=== PATIENT | male | born 1970 | race African-American/Black ===

== ENCOUNTER 2018-04-28 11:04 | Emergency (ER) | payer SELFPAY ==
[~2018-04-28] VITALS: Ht 172.7 cm; Wt 83.9 kg
[~2018-04-28 11:04] MED LIST: ASPI81TA50 PO; ATOR40TA PO; AZIT250T6 PO; BENZ-8 PO; CARV6.252 PO; FURO40TA4 PO; LEVO750T31 PO; LISI-130 PO; LISI1TAB3 PO
--- NOTE | 2018-04-28 11:31 | PHYS DOC ---
Past Medical History Past Medical History: High Cholesterol, Hypertension Past Surgical History: No Surgical History Alcohol Use: Heavy Drug Use: None Adult General Chief Complaint Chief Complaint: CHEST PAIN HPI HPI Patient is a 47 year old male who presents with chest pain at 10 AM that was sharp and heavy and only lasted for several minutes. Patient states the pain was more epigastric and did not radiate. Patient states that his left shoulder and left leg felt slightly numb and he had became diaphoretic. Patient states he used cocaine last night. Patient was at ED earlier and walked out because he did not like how they were treating him. Patient states that he is not short of air, denies nausea, vomiting, pain at this time. Neither headache, visual changes. Patient is ambulatory unsteady on his feet. Patient denies any weaknesses. Patient has a history of congestive heart failure for which she was admitted for back in March and has a follow-up soon with Dr. Hines. Also has a history of hypertension and hypercholesterolemia. Review of Systems Review of Systems Constitutional: Denies fever or chills [] Eyes: Denies change in visual acuity, redness, or eye pain [] HENT: Denies nasal congestion or sore throat [] Respiratory: Denies cough or shortness of breath [] Cardiovascular: No additional information not addressed in HPI [] GI: Denies abdominal pain, nausea, vomiting, bloody stools or diarrhea [] : Denies dysuria or hematuria [] Musculoskeletal: Denies back pain or joint pain [] Integument: Denies rash or skin lesions [] Neurologic: Denies headache, focal weakness or sensory changes [] Endocrine: Denies polyuria or polydipsia [] All other systems were reviewed and found to be within normal limits, except as documented in this note. Current Medications Current Medications Current Medications Medications (Trade) Dose Ordered Sig/Edward Start Time Stop Time Status Last Admin Dose Admin Iohexol (Omnipaque 300 Mg/ml) 60 ml 1X ONCE 04/28/18 14:15 04/28/18 14:16 DC 04/28/18 14:33 60 ML Sodium Chloride 500 ml @ 500 mls/hr 1X ONCE 04/28/18 14:30 04/28/18 15:29 Allergies Allergies Allergies Coded Allergies Type Severity Reaction Last Updated Verified No Known Drug Allergies 03/18/18 No Physical Exam Physical Exam Constitutional: Well developed, well nourished, no acute distress, non-toxic appearance. [] HENT: Normocephalic, atraumatic, bilateral external ears normal, oropharynx moist, no oral exudates, nose normal. [] Eyes: PERRLA, EOMI, conjunctiva normal, no discharge. [] Neck: Normal range of motion, no tenderness, supple, no stridor. [] Cardiovascular:Heart rate regular rhythm, no murmur [] Lungs & Thorax: Bilateral breath sounds clear to auscultation [] Abdomen: Bowel sounds normal, soft, no tenderness, no masses, no pulsatile masses. [] Skin: Warm, dry, no erythema, no rash. [] Back: No tenderness, no CVA tenderness. [] Extremities: No tenderness, no cyanosis, no clubbing, ROM intact, no edema. [] Neurologic: Alert and oriented X 3, normal motor function, normal sensory function, no focal deficits noted. [] Psychologic: Affect normal, judgement normal, mood normal. [] Current Patient Data Vital Signs Vital Signs Date Time Temp Pulse Resp B/P (MAP) Pulse Ox O2 Delivery O2 Flow Rate FiO2 04/28/18 11:05 98.0 84 15 118/72 (87) 99 Room Air 98.0 Lab Values Laboratory Tests Test 04/28/18 11:45 04/28/18 13:40 White Blood Count 5.7 x10^3/uL (4.0-11.0) Red Blood Count 4.41 x10^6/uL (4.30-5.70) Hemoglobin 13.4 g/dL (13.0-17.5) Hematocrit 40.3 % (39.0-53.0) Mean Corpuscular Volume 91 fL (79-100) Mean Corpuscular Hemoglobin 30 pg (25-35) Mean Corpuscular Hemoglobin Concent 33 g/dL (31-37) Red Cell Distribution Width 15.9 % (11.5-14.5) H Platelet Count 233 x10^3/uL (140-400) Neutrophils (%) (Auto) 59 % (31-73) Lymphocytes (%) (Auto) 30 % (24-48) Monocytes (%) (Auto) 8 % (0-9) Eosinophils (%) (Auto) 2 % (0-3) Basophils (%) (Auto) 1 % (0-3) Neutrophils # (Auto) 3.4 x10^3uL (1.8-7.7) Lymphocytes # (Auto) 1.7 x10^3/uL (1.0-4.8) Monocytes # (Auto) 0.5 x10^3/uL (0.0-1.1) Eosinophils # (Auto) 0.1 x10^3/uL (0.0-0.7) Basophils # (Auto) 0.0 x10^3/uL (0.0-0.2) D-Dimer (Ange) 0.95 ug/mlFEU (0.00-0.50) H Sodium Level 141 mmol/L (136-145) Potassium Level 3.8 mmol/L (3.5-5.1) Chloride Level 105 mmol/L (98-107) Carbon Dioxide Level 25 mmol/L (21-32) Anion Gap 11 (6-14) Blood Urea Nitrogen 33 mg/dL (8-26) H Creatinine 1.7 mg/dL (0.7-1.3) H Estimated GFR (Cockcroft-Gault) 52.1 BUN/Creatinine Ratio 19 (6-20) Glucose Level 110 mg/dL (70-99) H Calcium Level 8.9 mg/dL (8.5-10.1) Total Bilirubin 0.3 mg/dL (0.2-1.0) Aspartate Amino Transferase (AST) 26 U/L (15-37) Alanine Aminotransferase (ALT) 25 U/L (16-63) Alkaline Phosphatase 56 U/L (46-116) Troponin I Quantitative < 0.017 ng/mL (0.000-0.055) XY-Nyc-Z-Type Natriuretic Peptide 194 pg/mL (0-124) H Total Protein 6.5 g/dL (6.4-8.2) Albumin 3.8 g/dL (3.4-5.0) Albumin/Globulin Ratio 1.4 (1.0-1.7) Urine Opiates Screen Neg (NEG) Urine Methadone Screen Neg (NEG) Urine Barbiturates Neg (NEG) Urine Phencyclidine Screen Neg (NEG) Urine Amphetamine/Methamphetamine Neg (NEG) Urine Benzodiazepines Screen Neg (NEG) Urine Cocaine Screen Pos (NEG) Urine Cannabinoids Screen Neg (NEG) Urine Ethyl Alcohol Pos (NEG) Laboratory Tests 04/28/18 11:45 Laboratory Tests 04/28/18 11:45 EKG EKG Sinus Rhythm with T abnormality.[] Interpretation Time: [address] Gregg. Radiology/Procedures Radiology/Procedures CT Angio Chest x ray[] Impressions: [place] [id number] IMAGING REPORT Signed PATIENT: SUSHILA NAGEL ACCOUNT: [id number] : 1970 LOCATION: ER AGE: 47 SEX: M EXAM STATUS: REG ER ORD. PHYSICIAN: MAURO ZHANG APRN REASON: chest pain, LEFT SHOULDER & LEFT LEG NUMB, SINCE LAST NIGHT PROCEDURE: CHEST PA & LATERAL EXAM: Chest, 2 views. HISTORY: Pain. Numbness. COMPARISON: None. FINDINGS: Frontal and lateral views of the chest are obtained. There is no infiltrate, pleural effusion or pneumothorax. The heart is normal in size. IMPRESSION: No acute pulmonary finding. Electronically signed by: Lyndsey Christianson MD (04/28/2018 12:15 PM) [id number] DICTATED and SIGNED BY: LYNDSEY CHRISTIANSON MD DATE: 04/28/18 1214 [place] [id number] IMAGING REPORT Signed PATIENT: SUSHILA NAGEL ACCOUNT: [id number] : 1970 LOCATION: ER AGE: 47 SEX: M EXAM STATUS: REG ER ORD. PHYSICIAN: MAURO ZHANG APRN REASON: Elevated d-dimer PROCEDURE: CT ANGIOGRAPHY CHEST Examination: CT angiography chest HISTORY: History of elevated d-dimer, chest pain COMPARISON: 03/20/2018 TECHNIQUE: Axial CT angiographic images were performed with IV contrast. Coronal and sagittal 3-D MIP reformats are performed Exposure: One or more of the following individualized dose reduction techniques were utilized for this examination: 1. Automated exposure control 2. Adjustment of the mA and/or kV according to patient size 3. Use of iterative reconstruction technique FINDINGS: The central airways are patent. The caliber of the aorta grossly appears unremarkable. There is no evidence of filling defect identified in the main pulmonary arterial trunk and right and left main pulmonary arteries. The evaluation of the distal segmental branches of the pulmonary arteries is limited. Probable small 1.5 cm right hilar lymph node is less prominent compared to prior exam. Mild cardiomegaly. Minimal right lung base atelectasis. There is a tiny 4 mm nodule identified in the right middle lobe of the lung along the fissure. The visualized liver, spleen, adrenals grossly appears unremarkable. Mild degenerative changes thoracic spine IMPRESSION: 1. No evidence of central pulmonary embolism. Evaluation of the distal branches of the pulmonary arteries is limited. 2. Small right hilar lymph node is less prominent compared to prior exam. 3. 4 mm probable nodule identified in the right middle lobe of the lung. Follow-up per Fleischner Society guidelines with follow-up CT in 6 months. Electronically signed by: Kevan Barron MD (04/28/2018 3:05 PM) [id number] DICTATED and SIGNED BY: KEVAN BARRON MD DATE: 04/28/18 1456 Course & Med Decision Making Course & Med Decision Making Examination patient's lungs are clear to auscultation. Patient has no edema in any extremities. Patient longer has any chest pain. Patient is alert and oriented and neurologically intact. NIH is negative. Patient states that he is agreeable to the chest pain workup will not stay. Patient states in fact that he is ready to leave now but is willing to let me do blood work and a chest x- ray. Patient EKG shows sinus rhythm with a T abnormality which is no change from his last EKG in March. EKG read by Dr Gregg. Chest x ray is negative for acute findings. Troponin negative. Patient has a elevated D-dimer of .[address] angio is ordered. CT angio shows No evidence of central pulmonary embolism. Evaluation of the distal branches of the pulmonary arteries is limited. Small right hilar lymph node is less prominent compared to prior exam. 4 mm probable nodule identified in the right middle lobe of the lung. Follow-up per Fleischner Society guidelines with follow-up CT in 6 months. Patient is to be discharged home to follow up with Dr Hines and his primary care for reevaluation of his CT lung nodule. Patient is stable with no chest pain or new symptoms since this AM. Patient is stable and in no respiratory distress. [] Dragon Disclaimer Dragon Disclaimer This electronic medical record was generated, in whole or in part, using a voice recognition dictation system. Departure Departure Impression: Primary Impression: Chest pain Additional Impression: Lung nodule < 6cm on CT Disposition: HOME, SELF-CARE Condition: STABLE Referrals: NO PCP (PCP) Patient Instructions: Chest Pain (Nonspecific) Additional Instructions: Follow up with Dr Hines and primary care physician. Call tomorrow. Problem Qualifiers Primary Impression: Chest pain Chest pain type: unspecified Qualified Codes: R07.9 - Chest pain, unspecified MAURO ZHANG AP OPERATOR Apr 28, 2018 11:31
--- NOTE | 2018-04-28 11:46 | EKG ---
[facility] [address] [place] [address] Test Date: 2018-04-28 Test Time: 11:17:51 Pat Name: SUSHILA NAGEL Department: Room: Gender: M Winder Tender: : 1970 Requested By: MAURO ZHANG Order Number: [id number] Reading MD: Naeem Hines MD Measurements Intervals [place] Rate: 77 P: 48 ID: [id number] QRS: 40 QRSD: 98 T: 81 QT: 406 QTc: 461 Interpretive Statements SINUS RHYTHM ASH-SEPTAL INFARCT Electronically Signed On 04-29-2018 11:24:41 CDT by Naeem Hines MD
[2018-04-28 12:00] LABS: BASO % 1 % (0-3); EOS # 0.1 x10^3/uL (0.0-0.7); EOS % 2 % (0-3); HEMATOCRIT 40.3 % (39.0-53.0); HEMOGLOBIN 13.4 g/dL (13.0-17.5); LYMPH # 1.7 x10^3/uL (1.0-4.8); LYMPH % 30 % (24-48); MEAN CORPUSCULAR HEMOGLOBIN 30 pg (25-35); MEAN CORPUSCULAR HGB CONC 33 g/dL (31-37); MEAN CORPUSCULAR VOLUME 91 fL (79-100); MONO # 0.5 x10^3/uL (0.0-1.1); MONO % 8 % (0-9); NEUT # 3.4 x10^3uL (1.8-7.7); NEUT % 59 % (31-73); PLATELET COUNT 233 x10^3/uL (140-400); RED BLOOD COUNT 4.41 x10^6/uL (4.30-5.70); RED CELL DISTRIBUTION WIDTH 15.9 % (11.5-14.5); WHITE BLOOD COUNT 5.7 x10^3/uL (4.0-11.0)
[2018-04-28 12:11] LABS: CALCIUM 8.9 mg/dL (8.5-10.1); CREATININE 1.7 mg/dL (0.7-1.3); GFR 52.1; POTASSIUM 3.8 mmol/L (3.5-5.1)
--- NOTE | 2018-04-28 12:17 | RAD ---
EXAM: Chest, 2 views. HISTORY: Pain. Numbness. COMPARISON: None. FINDINGS: Frontal and lateral views of the chest are obtained. There is no infiltrate, pleural effusion or pneumothorax. The heart is normal in size. IMPRESSION: No acute pulmonary finding. Electronically signed by: Lyndsey Brewster MD (04/28/2018 12:15 PM) [place] [id number]
[2018-04-28 12:20] LABS: ALBUMIN 3.8 g/dL (3.4-5.0); ALBUMIN/GLOBULIN RATIO 1.4 (1.0-1.7); TOTAL BILIRUBIN 0.3 mg/dL (0.2-1.0); TOTAL PROTEIN 6.5 g/dL (6.4-8.2)
[2018-04-28 13:53] LABS: BARBITURATES NEG (NEG); BENZODIAZEPINES NEG (NEG); CANNABINOIDS NEG (NEG); COCAINE POS (NEG); METHADONE NEG (NEG); OPIATES NEG (NEG); PHENCYCLIDINE NEG (NEG)
[2018-04-28 13:55] LABS: AMPHETAMINE/METHAMPHETAMINE NEG (NEG)
[2018-04-28] MEDS ORDERED: IOHEXOL 300 MG/ML 100ML VIAL. IV ONE (14:15)
[2018-04-28] MEDS ORDERED: IV NORMAL SALINE 500ML BAG 500 ML IV ONE (14:30)
[2018-04-28] MEDS ORDERED: IV NORMAL SALINE 1000ML BAG 1,000 ML IV ONE (14:30)
--- NOTE | 2018-04-28 15:08 | RAD ---
Examination: CT angiography chest HISTORY: History of elevated d-dimer, chest pain COMPARISON: 03/20/2018 TECHNIQUE: Axial CT angiographic images were performed with IV contrast. Coronal and sagittal 3-D MIP reformats are performed Exposure: One or more of the following individualized dose reduction techniques were utilized for this examination: 1. Automated exposure control 2. Adjustment of the mA and/or kV according to patient size 3. Use of iterative reconstruction technique FINDINGS: The central airways are patent. The caliber of the aorta grossly appears unremarkable. There is no evidence of filling defect identified in the main pulmonary arterial trunk and right and left main pulmonary arteries. The evaluation of the distal segmental branches of the pulmonary arteries is limited. Probable small 1.5 cm right hilar lymph node is less prominent compared to prior exam. Mild cardiomegaly. Minimal right lung base atelectasis. There is a tiny 4 mm nodule identified in the right middle lobe of the lung along the fissure. The visualized liver, spleen, adrenals grossly appears unremarkable. Mild degenerative changes thoracic spine IMPRESSION: 1. No evidence of central pulmonary embolism. Evaluation of the distal branches of the pulmonary arteries is limited. 2. Small right hilar lymph node is less prominent compared to prior exam. 3. 4 mm probable nodule identified in the right middle lobe of the lung. Follow-up per Fleischner Society guidelines with follow-up CT in 6 months. Electronically signed by: Kevan Barron MD (04/28/2018 3:05 PM) [id number]
[2018-04-28 15:30] VITALS: BP 132/84
== END 2018-04-28 15:47 | disposition home or self-care (01) ==
LOC: ER 11:04
DX: R91.1 Solitary pulmonary nodule (principal); R07.89 Other chest pain; E78.00 Pure hypercholesterolemia, unspecified; I11.0 Hypertensive heart disease with heart failure; I50.9 Heart failure, unspecified; F10.10 Alcohol abuse, uncomplicated; Y90.9 Presence of alcohol in blood, level not specified
CPT/HCPCS: 36415; 71046; 71275; 80053; 80307; 83880; 84484; 85025; 85379; 93005; 99285; J7030; Q9967; G0479

== ENCOUNTER 2018-07-16 09:15 | Emergency (ER) | payer MEDICAID, OTHER ==
[~2018-07-16] VITALS: Ht 175.3 cm; Wt 83.9 kg
[2018-07-16 09:35] VITALS: BP 162/93
--- NOTE | 2018-07-16 10:24 | PHYS DOC ---
Past Medical History Past Medical History: High Cholesterol, Hypertension Past Surgical History: No Surgical History Alcohol Use: Heavy Drug Use: Cocaine Adult General Chief Complaint Chief Complaint: SORE THROAT HPI HPI Patient is a 48 year old male with history of hypertension, high cholesterol, who presents today complaining of a sore throat and a cough for 5 days. Patient denies any fever. Patient states he was seen at [facility] yesterday, he states they did a flu test as well as strep test which were negative. Patient states he has continued to have the symptoms. Patient denies any fever. Patient also states he is a smoker. Review of Systems Review of Systems Constitutional: Denies fever or chills [] Eyes: Denies change in visual acuity, redness, or eye pain [] HENT: Reports sore throat. Denies nasal congestion Respiratory: Reports cough, denies shortness of breath [] Cardiovascular: No additional information not addressed in HPI [] GI: Denies abdominal pain, nausea, vomiting, bloody stools or diarrhea [] : Denies dysuria or hematuria [] Musculoskeletal: Denies back pain or joint pain [] Integument: Denies rash or skin lesions [] Neurologic: Denies headache, focal weakness or sensory changes [] All other systems were reviewed and found to be within normal limits, except as documented in this note. Allergies Allergies Allergies Coded Allergies Type Severity Reaction Last Updated Verified No Known Drug Allergies 03/18/18 No Physical Exam Physical Exam Constitutional: Well developed, well nourished, no acute distress, non-toxic appearance. [] HENT: Normocephalic, atraumatic, bilateral external ears normal, oropharynx moist, no oral exudates, nose normal. [] posterior pharynx with mild erythema no exudate Eyes: PERRLA, EOMI, conjunctiva normal, no discharge. [] Neck: Normal range of motion, no tenderness, supple, no stridor. [] Cardiovascular:Heart rate regular rhythm, no murmur [] Lungs & Thorax: Bilateral breath sounds clear to auscultation [] Abdomen: Bowel sounds normal, soft, no tenderness, no masses, no pulsatile masses. [] Skin: Warm, dry, no erythema, no rash. [] Back: No tenderness, no CVA tenderness. [] Extremities: No tenderness, no cyanosis, no clubbing, ROM intact, no edema. [] Neurologic: Alert and oriented X 3, normal motor function, normal sensory function, no focal deficits noted. [] Psychologic: Affect normal, judgement normal, mood normal. [] Current Patient Data Vital Signs Vital Signs Date Time Temp Pulse Resp B/P (MAP) Pulse Ox O2 Delivery O2 Flow Rate FiO2 07/16/18 09:35 98.1 97 20 162/93 (116) 99 Room Air 98.1 EKG EKG [] Radiology/Procedures Radiology/Procedures [] Course & Med Decision Making Course & Med Decision Making Pertinent Labs and Imaging studies reviewed. (See chart for details) This is a 48-year-old male patient presented to the ED today with complaints of sore throat and a cough for 5 days. See history of present illness. Patient was seen at [facility] yesterday, had a negative strep test as well as negative influenza test. Chest x-ray interpreted by radiologist is negative for any acute findings. Rapid strep in ED is also negative. Patient's symptoms are likely viral. He was encouraged to consider smoking cessation. He was encouraged to take Tylenol or Motrin as needed for pain. Discharged with prednisone for 5 days and Tessalon Perles. Follow-up with PCP in 1-2 weeks. Dragon Disclaimer Dragon Disclaimer This electronic medical record was generated, in whole or in part, using a voice recognition dictation system. Departure Departure Impression: Primary Impression: Acute viral pharyngitis Additional Impressions: Cough Smoking addiction Disposition: HOME, SELF-CARE Condition: STABLE Referrals: NO PCP (PCP) Follow-up with the primary care doctor as soon as you can Patient Instructions: Cough, Adult, [id number], Smoking Cessation, Viral Pharyngitis Additional Instructions: You were evaluated in the emergency room for sore throat and cough. Your strep test in the emergency room is negative. You also have a negative chest x-ray. Take the prescribed medications as ordered. Take Tylenol or Motrin as needed for pain or fever. Continue using salt water gargles and cough lozenges. Scripts Prednisone (PREDNISONE) 50 Mg Tablet 1 TAB PO DAILY, #5 TAB Prov: RADHAAMATEUS RETAIL PRESENTATION SPECIALIST 07/16/18 Benzonatate (TESSALON PERLE) 100 Mg Capsule 1 CAP PO TID, #30 CAP Prov: MUTUNGA,MATEUS RETAIL PRESENTATION SPECIALIST 07/16/18 Albuterol Sulfate (VENTOLIN HFA INHALER) 18 Gm Hfa.aer.ad 2 PUFF INH Q4HRS for FOR ASTHMA, #1 INHALER 0 Refills Prov: MATEUS KHAN APRN 07/16/18 Problem Qualifiers MATEUS KHAN APRN Jul 16, 2018 10:24
--- NOTE | 2018-07-16 10:35 | RAD ---
PROCEDURE: CHEST PA LATERAL CLINICAL INDICATION: SORE THROAT & PRODUCTIVE COUGH 4-5 DAYS ALSO FATIGUE AND SWEATING. PATIENT HAS HX OF CHF, HX OF HYPERTENSION, HX OF HYPERLIPIDEMIA COMPARISON: 04/28/2018 FINDINGS: No pneumothorax identified. Cardiac and mediastinal contours unremarkable. No pulmonary consolidation or acute airspace disease. No acute osseous abnormalities identified. IMPRESSION: No pulmonary consolidation or acute airspace disease. Electronically signed by: Isaak Pérez DO (07/16/2018 10:32 AM) [id number]
[2018-07-16] MEDS ORDERED: PRED50TA PO (11:04)
[2018-07-16] MEDS ORDERED: BENZ100C PO (11:04)
[2018-07-16] MEDS ORDERED: VENTOLIN HFA18 GM INH (11:04)
== END 2018-07-16 11:11 | disposition home or self-care (01) ==
LOC: ER 09:15
DX: J02.8 Acute pharyngitis due to other specified organisms (principal); B97.89 Other viral agents as the cause of diseases classified elsewhere; F17.200 Nicotine dependence, unspecified, uncomplicated; I10 Essential (primary) hypertension; E78.00 Pure hypercholesterolemia, unspecified; F10.20 Alcohol dependence, uncomplicated; Y90.9 Presence of alcohol in blood, level not specified
CPT/HCPCS: 71046; 87070; 87880; 99285

== ENCOUNTER 2018-07-20 17:52 | Emergency (ER) | payer MEDICAID, OTHER ==
[~2018-07-20] VITALS: Ht 172.7 cm; Wt 86.2 kg
[~2018-07-20 17:52] MED LIST changes: +BENZ100C PO; +PRED50TA PO; +VENTOLIN HFA18 GM INH
[2018-07-20] MEDS ORDERED: IV NORMAL SALINE 1000ML BAG 1,000 ML IV ONE (18:30)
--- NOTE | 2018-07-20 18:41 | PHYS DOC ---
Past Medical History Past Medical History: High Cholesterol, Hypertension Past Surgical History: No Surgical History Additional Information: 1/2 PK/DAY Alcohol Use: Heavy Drug Use: Cocaine Adult General Chief Complaint Chief Complaint: SORE THROAT HPI HPI Patient is a 48 year old male with history of hypertension, high cholesterol, who presents today complaining of sore throat for one week. Patient states he was seen at [facility] 5 days ago for the same complaint. He states he came to the ED 4 days ago and was seen for the same complaint. He states did a strep test as well as influenza test which were negative. He states we did a strep test, chest x-ray which were negative. He was sent home with prednisone, he states he took prednisone and his tongue was swollen so he stopped taking it. Patient denies any fever. He is requesting to be tested and treated for STDs too. Review of Systems Review of Systems Constitutional: Denies fever or chills [] Eyes: Denies change in visual acuity, redness, or eye pain [] HENT: Report sore throat.Denies nasal congestion Respiratory: Denies cough or shortness of breath [] Cardiovascular: No additional information not addressed in HPI [] GI: Denies abdominal pain, nausea, vomiting, bloody stools or diarrhea [] : Denies dysuria or hematuria [] Musculoskeletal: Denies back pain or joint pain [] Integument: Denies rash or skin lesions [] Neurologic: Denies headache, focal weakness or sensory changes [] All other systems were reviewed and found to be within normal limits, except as documented in this note. Current Medications Current Medications Current Medications Medications (Trade) Dose Ordered Sig/Edward Start Time Stop Time Status Last Admin Dose Admin Azithromycin (Zithromax) 1,000 mg 1X ONCE 07/20/18 19:00 07/20/18 19:01 DC 07/20/18 18:56 1,000 MG Ceftriaxone Sodium 50 ml @ 100 mls/hr 1X ONCE 07/20/18 19:00 07/20/18 19:29 DC 07/20/18 18:58 100 MLS/HR Dexamethasone Sodium Phosphate (Decadron) 10 mg 1X ONCE 07/20/18 19:00 07/20/18 19:00 DC Info (CONTRAST GIVEN -- Rx MONITORING) 1 each PRN DAILY PRN 07/20/18 19:00 11/20/18 18:59 Iohexol (Omnipaque 300 Mg/ml) 75 ml 1X ONCE 07/20/18 18:45 07/20/18 18:47 DC 07/20/18 18:45 75 ML Ketorolac Tromethamine (Toradol 30mg Vial) 30 mg 1X ONCE 07/20/18 19:00 07/20/18 19:01 DC 07/20/18 18:58 30 MG Methylprednisolone Sodium Succinate (SOLU-Medrol 125MG VIAL) 125 mg 1X ONCE 07/20/18 19:00 07/20/18 19:01 DC 07/20/18 18:57 125 MG Metronidazole (Flagyl) 2,000 mg 1X ONCE 07/20/18 19:00 07/20/18 19:01 DC 07/20/18 18:56 2,000 MG Sodium Chloride 1,000 ml @ 1,000 mls/hr 1X ONCE 07/20/18 18:30 07/20/18 19:29 DC 07/20/18 18:55 1,000 MLS/HR Allergies Allergies Allergies Coded Allergies Type Severity Reaction Last Updated Verified No Known Drug Allergies 03/18/18 No Physical Exam Physical Exam Constitutional: Well developed, well nourished, no acute distress, non-toxic appearance. [] HENT: Normocephalic, atraumatic, bilateral external ears normal, oropharynx moist, no oral exudates, nose normal. [] Posterior pharynx with moderate erythema +3 right tonsils to the right side, midline uvula +2 right anterior cervical adenopathy no exudate Eyes: PERRLA, EOMI, conjunctiva normal, no discharge. [] Neck: Normal range of motion, no tenderness, supple, no stridor. [] Cardiovascular:Heart rate regular rhythm, no murmur [] Lungs & Thorax: Bilateral breath sounds clear to auscultation [] Abdomen: Bowel sounds normal, soft, no tenderness, no masses, no pulsatile masses. [] Skin: Warm, dry, no erythema, no rash. [] Back: No tenderness, no CVA tenderness. [] Extremities: No tenderness, no cyanosis, no clubbing, ROM intact, no edema. [] Neurologic: Alert and oriented X 3, normal motor function, normal sensory function, no focal deficits noted. [] Psychologic: Affect normal, judgement normal, mood normal. [] Current Patient Data Vital Signs Vital Signs Date Time Temp Pulse Resp B/P (MAP) Pulse Ox O2 Delivery O2 Flow Rate FiO2 07/20/18 21:00 99 149/99 (116) 97 Room Air 07/20/18 18:04 97.9 20 97.9 Lab Values Laboratory Tests Test 07/20/18 18:16 07/20/18 18:55 Urine Collection Type Unknown Urine Color Yellow Urine Clarity Clear Urine pH 5.5 Urine Specific Volin >=1.030 Urine Protein 100 mg/dL (NEG-TRACE) Urine Glucose (UA) Negative mg/dL (NEG) Urine Ketones (Stick) Trace mg/dL (NEG) Urine Blood Negative (NEG) Urine Nitrite Negative (NEG) Urine Bilirubin Negative (NEG) Urine Urobilinogen Dipstick 0.2 mg/dL (0.2 mg/dL) Urine Leukocyte Esterase Negative (NEG) Urine RBC 0 /HPF (0-2) Urine WBC Occ /HPF (0-4) Urine Squamous Epithelial Cells Occ /LPF Urine Bacteria 0 /HPF (0-FEW) Urine Mucus Marked /LPF Urine Opiates Screen Neg (NEG) Urine Methadone Screen Neg (NEG) Urine Barbiturates Neg (NEG) Urine Phencyclidine Screen Neg (NEG) Urine Amphetamine/Methamphetamine Neg (NEG) Urine Benzodiazepines Screen Neg (NEG) Urine Cocaine Screen Pos (NEG) Urine Cannabinoids Screen Neg (NEG) Urine Ethyl Alcohol Pos (NEG) White Blood Count 14.1 x10^3/uL (4.0-11.0) H Red Blood Count 4.69 x10^6/uL (4.30-5.70) Hemoglobin 14.4 g/dL (13.0-17.5) Hematocrit 43.6 % (39.0-53.0) Mean Corpuscular Volume 93 fL (79-100) Mean Corpuscular Hemoglobin 31 pg (25-35) Mean Corpuscular Hemoglobin Concent 33 g/dL (31-37) Red Cell Distribution Width 14.7 % (11.5-14.5) H Platelet Count 314 x10^3/uL (140-400) Neutrophils (%) (Auto) 81 % (31-73) H Lymphocytes (%) (Auto) 11 % (24-48) L Monocytes (%) (Auto) 8 % (0-9) Eosinophils (%) (Auto) 0 % (0-3) Basophils (%) (Auto) 0 % (0-3) Neutrophils # (Auto) 11.4 x10^3uL (1.8-7.7) H Lymphocytes # (Auto) 1.5 x10^3/uL (1.0-4.8) Monocytes # (Auto) 1.1 x10^3/uL (0.0-1.1) Eosinophils # (Auto) 0.0 x10^3/uL (0.0-0.7) Basophils # (Auto) 0.1 x10^3/uL (0.0-0.2) Erythrocyte Sedimentation Rate 38 (0-15) H Sodium Level 143 mmol/L (136-145) Potassium Level 3.4 mmol/L (3.5-5.1) L Chloride Level 104 mmol/L (98-107) Carbon Dioxide Level 29 mmol/L (21-32) Anion Gap 10 (6-14) Blood Urea Nitrogen 15 mg/dL (8-26) Creatinine 1.3 mg/dL (0.7-1.3) Estimated GFR (Cockcroft-Gault) 70.7 Glucose Level 102 mg/dL (70-99) H Calcium Level 9.4 mg/dL (8.5-10.1) C-Reactive Protein, Quantitative 32.7 mg/L (0-3.3) H Ethyl Alcohol Level 91 mg/dL (0-10) H Laboratory Tests 07/20/18 18:55 Laboratory Tests 07/20/18 18:55 EKG EKG [] Radiology/Procedures Radiology/Procedures []PROCEDURE: CT SOFT TISSUE NECK W/CONTRAST CT SOFT TISSUE NECK W/CONTRAST dated 07/20/2018 7:47 PM Indication:. SwellingSORE THROAT AND SWELLING X 1.5 WEEKS INJ 75ML OMNI 300 NO PREV . Comparison: No comparison is available. Technique: Contiguous axial imaging of the neck performed following the intravenous administration of 75 cc Omnipaque 300. One or more of the following individualized dose reduction techniques were utilized for this examination: 1. Automated exposure control 2. Adjustment of the mA and/or kV according to patient size 3. Use of iterative reconstruction technique Findings: Tonsillar soft tissues are thickened, right greater than left. Along the right margin of the pharyngeal mucosal, there is a hypodense collection that measures up to 3 cm craniocaudal dimension and shows peripheral rim enhancement. This results in moderate mass effect with moderate narrowing of the central airway. The parapharyngeal fat planes are obscured. There is no soft tissue gas. Edematous tissues extending from the nasopharynx to the oropharynx nearly to the level of the focal folds. There is no visible parapharyngeal fat on the right. There is an enlarged cervical chain lymph node on the right just anterior to the carotid bifurcation measures 2 cm long axis. A few additional borderline enlarged lymph nodes are noted in the anterior and posterior chain on the right. No left-sided adenopathy. The carotid and vertebral arteries are grossly patent. Paranasal sinuses are clear. Visualized portions of the brain parenchyma unremarkable. Thyroid gland unremarkable. Lung apices are clear. No significant bony abnormality. There is multilevel spondylosis. IMPRESSION: 1. Marked edema of the pharyngeal mucosa near the peritonsillar region, right greater than left, consistent with history of acute pharyngitis. There is an ovoid rim-enhancing collection in the right peritonsillar region that measures up to 3 cm in size, suspicious for peritonsillar abscess. There is mass effect with resultant moderate narrowing of the airway. 2. Right-sided cervical chain lymphadenopathy with largest lymph node measuring up to 2 cm long axis. This is nonspecific but most likely reactive. Underlying neoplasm cannot be excluded based on this exam and clinical follow-up or follow-up imaging is recommended to ensure resolution. Electronically signed by: Wisam Sow MD (07/20/2018 8:24 PM) [facility] DICTATED and SIGNED BY: WISAM SOW MD DATE: 07/20/182010 Course & Med Decision Making Course & Med Decision Making Pertinent Labs and Imaging studies reviewed. (See chart for details) This is a 48-year-old male patient presented to the ED today with sore throat for one week. Patient is also requesting prophylaxis treatment for STDs. He was given Rocephin and azithromycin and Flagyl awaiting STD results. Patient was also given Solu-Medrol, IV fluids. Vitals on arrival to the ED temperature was 97.9 heart rate 100, O2 sats 100% on room air, respiration 20 room air, blood pressure 151/102. CBC with a WBC of 14.1 and a left shift. BMP with no acute findings. Sedimentation rate 38, CMP 32.7. UDS positive for cocaine, alcohol level 91. CT of the neck soft tissue with IV contrast IMPRESSION: 1. Marked edema of the pharyngeal mucosa near the peritonsillar region, right greater than left, consistent with history of acute pharyngitis. There is an ovoid rim-enhancing collection in the right peritonsillar region that measures up to 3 cm in size, suspicious for peritonsillar abscess. There is mass effect with resultant moderate narrowing of the airway. 2. Right-sided cervical chain lymphadenopathy with largest lymph node measuring up to 2 cm long axis. This is nonspecific but most likely reactive. Underlying neoplasm cannot be excluded based on this exam and clinical follow-up or follow-up imaging is recommended to ensure resolution. Patient will be transferred to [facility] Patient's airway is still open. He is in no respiratory distress. Dr. Ulrich accepted patient at [facility] through their Ed. EMS to transport patient. Jean Paul Disclaimer Irajon Disclaimer This electronic medical record was generated, in whole or in part, using a voice recognition dictation system. Departure Departure Impression: Primary Impression: Peritonsillar abscess Additional Impression: Acute pharyngitis Disposition: 05 TRANSFER OTHER Condition: STABLE Referrals: NO PCP (PCP) Problem Qualifiers Additional Impression: Acute pharyngitis Pharyngitis/tonsillitis etiology: unspecified etiology Qualified Codes: J02.9 - Acute pharyngitis, unspecified MATEUS KHAN [employer]OUNTANT AUDITOR Jul 20, 2018 18:40
[2018-07-20 18:42] LABS: BILIRUBIN,URINE NEGATIVE (NEG); CLARITY,URINE CLEAR; COLOR,URINE YELLOW; NITRITE,URINE NEGATIVE (NEG); PH,URINE 5.5; PROTEIN,URINE 100 mg/dL (NEG-TRACE); UROBILINOGEN,URINE 0.2 mg/dL (0.2 mg/dL)
[2018-07-20] MEDS ORDERED: IOHEXOL 300 MG/ML 100ML VIAL. IV ONE (18:45)
[2018-07-20 18:47] LABS: AMPHETAMINE/METHAMPHETAMINE NEG (NEG); BARBITURATES NEG (NEG); BENZODIAZEPINES NEG (NEG); CANNABINOIDS NEG (NEG); COCAINE POS (NEG); METHADONE NEG (NEG); OPIATES NEG (NEG); PHENCYCLIDINE NEG (NEG)
[2018-07-20 18:49] LABS: BACTERIA,URINE 0 /HPF (0-FEW); RBC,URINE 0 /HPF (0-2); SQUAMOUS EPITHELIAL CELL,UR OCC /LPF; WBC,URINE OCC /HPF (0-4)
[2018-07-20] MEDS ORDERED: DEXAMETHASONE SOD PHOS 20 MG/5 ML VIAL. IV ONE (19:00)
[2018-07-20] MEDS ORDERED: KETOROLAC 30 MG/ML VIAL. IV ONE (19:00)
[2018-07-20] MEDS ORDERED: metroNIDAZOLE 500 MG TABLET PO ONE (19:00)
[2018-07-20] MEDS ORDERED: CONTRAST GIVEN. MC PRN (19:00)
[2018-07-20] MEDS ORDERED: AZITHROMYCIN 250 MG TABLET. PO ONE (19:00)
[2018-07-20] MEDS ORDERED: methylPREDNISolone SOD SUCC PF 125 MG/2 ML VIAL. IV ONE (19:00)
[2018-07-20 19:16] LABS: BASO # 0.1 x10^3/uL (0.0-0.2); BASO % 0 % (0-3); EOS % 0 % (0-3); HEMATOCRIT 43.6 % (39.0-53.0); HEMOGLOBIN 14.4 g/dL (13.0-17.5); LYMPH # 1.5 x10^3/uL (1.0-4.8); LYMPH % 11 % (24-48); MEAN CORPUSCULAR HEMOGLOBIN 31 pg (25-35); MEAN CORPUSCULAR HGB CONC 33 g/dL (31-37); MEAN CORPUSCULAR VOLUME 93 fL (79-100); MONO # 1.1 x10^3/uL (0.0-1.1); MONO % 8 % (0-9); NEUT # 11.4 x10^3uL (1.8-7.7); NEUT % 81 % (31-73); PLATELET COUNT 314 x10^3/uL (140-400); RED BLOOD COUNT 4.69 x10^6/uL (4.30-5.70); RED CELL DISTRIBUTION WIDTH 14.7 % (11.5-14.5); WHITE BLOOD COUNT 14.1 x10^3/uL (4.0-11.0)
[2018-07-20 19:26] LABS: CALCIUM 9.4 mg/dL (8.5-10.1); CREATININE 1.3 mg/dL (0.7-1.3); GFR 70.7; POTASSIUM 3.4 mmol/L (3.5-5.1)
[2018-07-20 19:29] LABS: C-REACTIVE PROTEIN 32.7 mg/L (0-3.3)
--- NOTE | 2018-07-20 20:28 | RAD ---
CT SOFT TISSUE NECK W/CONTRAST dated 07/20/2018 7:47 PM Indication:. SwellingSORE THROAT AND SWELLING X 1.5 WEEKS INJ 75ML OMNI 300 NO PREV . Comparison: No comparison is available. Technique: Contiguous axial imaging of the neck performed following the intravenous administration of 75 cc Omnipaque 300. One or more of the following individualized dose reduction techniques were utilized for this examination: 1. Automated exposure control 2. Adjustment of the mA and/or kV according to patient size 3. Use of iterative reconstruction technique Findings: Tonsillar soft tissues are thickened, right greater than left. Along the right margin of the pharyngeal mucosal, there is a hypodense collection that measures up to 3 cm craniocaudal dimension and shows peripheral rim enhancement. This results in moderate mass effect with moderate narrowing of the central airway. The parapharyngeal fat planes are obscured. There is no soft tissue gas. Edematous tissues extending from the nasopharynx to the oropharynx nearly to the level of the focal folds. There is no visible parapharyngeal fat on the right. There is an enlarged cervical chain lymph node on the right just anterior to the carotid bifurcation measures 2 cm long axis. A few additional borderline enlarged lymph nodes are noted in the anterior and posterior chain on the right. No left-sided adenopathy. The carotid and vertebral arteries are grossly patent. Paranasal sinuses are clear. Visualized portions of the brain parenchyma unremarkable. Thyroid gland unremarkable. Lung apices are clear. No significant bony abnormality. There is multilevel spondylosis. IMPRESSION: 1. Marked edema of the pharyngeal mucosa near the peritonsillar region, right greater than left, consistent with history of acute pharyngitis. There is an ovoid rim-enhancing collection in the right peritonsillar region that measures up to 3 cm in size, suspicious for peritonsillar abscess. There is mass effect with resultant moderate narrowing of the airway. 2. Right-sided cervical chain lymphadenopathy with largest lymph node measuring up to 2 cm long axis. This is nonspecific but most likely reactive. Underlying neoplasm cannot be excluded based on this exam and clinical follow-up or follow-up imaging is recommended to ensure resolution. Electronically signed by: Wisam Sow MD (07/20/2018 8:24 PM) [facility]
[2018-07-20 21:00] VITALS: BP 149/99
== END 2018-07-20 22:12 | disposition short-term general hospital (02) ==
LOC: ER 17:52
DX: J36 Peritonsillar abscess (principal); J02.9 Acute pharyngitis, unspecified; E78.00 Pure hypercholesterolemia, unspecified; I10 Essential (primary) hypertension; F10.20 Alcohol dependence, uncomplicated; Y90.4 Blood alcohol level of 80-99 mg/100 ml; F17.200 Nicotine dependence, unspecified, uncomplicated; F14.10 Cocaine abuse, uncomplicated
CPT/HCPCS: 36415; 70491; 80048; 80307; 81001; 85025; 85651; 86140; 87491; 87591; 96365; 96366; 96375; 99285; G0480; J0690; J1885; J2930; J7030; Q0144; Q9967

== ENCOUNTER 2021-01-16 18:04 | Emergency (ER) | payer OTHER ==
[~2021-01-16] VITALS: Ht 175.3 cm; Wt 77.0 kg
[~2021-01-16 18:04] MED LIST changes: +CARV6.2511 PO; -CARV6.252 PO; +LISI1TAB23 PO; -LISI1TAB3 PO
--- NOTE | 2021-01-16 18:28 | PHYS DOC ---
Past Medical History Past Medical History: High Cholesterol, Hypertension Past Surgical History: No Surgical History Smoking Status: Current Every Day Smoker Alcohol Use: Heavy Drug Use: Cocaine General Adult EDM: Chief Complaint: FLANK PAIN HPI: HPI: Patient is a 50 year old male with past medical history hypertension hyperlipidemia presents with a chief complaint of abdominal pain. Patient states onset of pain 3 days ago. Pain is primarily left flank radiates all the way across patient's entire abdomen. Review of Systems: Review of Systems: Constitutional: Denies fever or chills. [] Eyes: Denies change in visual acuity. [] HENT: Denies nasal congestion or sore throat. [] Respiratory: Denies cough or shortness of breath. [] Cardiovascular: Denies chest pain or edema. [] GI: Denies abdominal pain, nausea, vomiting, bloody stools or diarrhea. [] : Denies dysuria. [] Musculoskeletal: Denies back pain or joint pain. [] Integument: Denies rash. [] Neurologic: Denies headache, focal weakness or sensory changes. [] Endocrine: Denies polyuria or polydipsia. [] Lymphatic: Denies swollen glands. [] Psychiatric: Denies depression or anxiety. [] Heart Score: C/O Chest Pain: N/A Risk Factors: Risk Factors: DM, Current or recent (<one month) smoker, HTN, HLP, family history of CAD, obesity. Risk Scores: Score 0 - 3: 2.5% MACE over next 6 weeks - Discharge Home Score 4 - 6: 20.3% MACE over next 6 weeks - Admit for Clinical Observation Score 7 - 10: 72.7% MACE over next 6 weeks - Early Invasive Strategies Allergies: Allergies: Allergies Coded Allergies Type Severity Reaction Last Updated Verified No Known Drug Allergies 03/18/18 No Physical Exam: PE: General: alert, no acute distress. Skin: warm, dry and intact. Head:: Normocephalic, atraumatic. Neck: Trachea midline. Eyes: EOMI, Normal conjunctiva, No drainage CARDIOVASCULAR: Regular rate and rhythm RESPIRATORY: No respiratory distress Back: Full range of motion. MUSCULOSKELETAL: Full range of motion of bilateral upper and lower extremities. GASTROINTESTINAL: diffuse abdominal tenderness no rebound or guarding NEUROLOGICAL: Alert and noted to person, place and time. No neurological deficits observed Psychiatric: Cooperative. Normal judgment EKG: EKG: [] Radiology/Procedures: Radiology/Procedures: [] Course & Med Decision Making: Course & Med Decision Making Pertinent Labs and Imaging studies reviewed. (See chart for details) [] Patient was evaluated for chief complaint. Work-up consisted of laboratory analysis and radiologic imaging. Results reviewed and discussed with patient and family. Patient's CT shows no acute abnormality. Patient's lipase elevated in the 500s pain patient's creatinine 1.9. Review of patient's past creatinine levels as high as 1.7. Treatment included 2 L of IV fluids Toradol and Zofran. Dragon Disclaimer: Dragon Disclaimer: This electronic medical record was generated, in whole or in part, using a voice recognition dictation system. Departure Departure Impression: Primary Impression: Pancreatitis Additional Impression: Renal insufficiency Disposition: 01 HOME / SELF CARE / HOMELESS Condition: STABLE Referrals: NO PCP (PCP) Patient Instructions: Acute Kidney Injury, Acute Pancreatitis Scripts Tramadol Hcl (ULTRAM) 50 Mg Tablet 1 TAB PO PRN Q6HRS PRN for pain MDD 4 Tablet(s) for 7 Days, #28 TAB 0 Refills Prov: BOUBACAR HARVEY DO 01/16/21 BOUBACAR HARVYE DO January 16, 2021 18:28
[2021-01-16] MEDS ORDERED: ONDANSETRON PF 4 MG/2 ML VIAL. IVP ONE (18:30)
[2021-01-16] MEDS ORDERED: KETOROLAC 30 MG/ML VIAL. IVP ONE (18:30)
[2021-01-16] MEDS ORDERED: IV NORMAL SALINE 1000ML BAG 1,000 ML IV ONE ×2 (18:30→20:00)
[2021-01-16 19:11] LABS: BASO % 1 % (0-3); EOS # 0.2 x10^3/uL (0.0-0.7); EOS % 3 % (0-3); HEMATOCRIT 43.4 % (39.0-53.0); HEMOGLOBIN 14.2 g/dL (13.0-17.5); LYMPH # 1.3 x10^3/uL (1.0-4.8); LYMPH % 26 % (24-48); MEAN CORPUSCULAR HEMOGLOBIN 30 pg (25-35); MEAN CORPUSCULAR HGB CONC 33 g/dL (31-37); MEAN CORPUSCULAR VOLUME 93 fL (79-100); MONO # 0.8 x10^3/uL (0.0-1.1); MONO % 17 % (0-9); NEUT # 2.7 x10^3/uL (1.8-7.7); NEUT % 53 % (31-73); PLATELET COUNT 241 x10^3/uL (140-400); RED BLOOD COUNT 4.69 x10^6/uL (4.30-5.70); RED CELL DISTRIBUTION WIDTH 14.4 % (11.5-14.5); WHITE BLOOD COUNT 5.1 x10^3/uL (4.0-11.0)
[2021-01-16 19:14] LABS: CALCIUM 8.5 mg/dL (8.5-10.1); CREATININE 1.9 mg/dL (0.7-1.3); GFR 45.3; POTASSIUM 4.1 mmol/L (3.5-5.1)
[2021-01-16 19:15] LABS: BILIRUBIN,URINE NEGATIVE (NEG); CLARITY,URINE CLEAR; COLOR,URINE YELLOW; NITRITE,URINE NEGATIVE (NEG); PROTEIN,URINE NEGATIVE (NEG-TRACE); UROBILINOGEN,URINE 0.2 mg/dL (0.2 mg/dL)
[2021-01-16 19:20] LABS: ALBUMIN 3.9 g/dL (3.4-5.0); ALBUMIN/GLOBULIN RATIO 1.3 (1.0-1.7); TOTAL BILIRUBIN 0.2 mg/dL (0.2-1.0); TOTAL PROTEIN 6.9 g/dL (6.4-8.2)
[2021-01-16 19:22] LABS: BACTERIA,URINE 0 /HPF (0-FEW); RBC,URINE 0 /HPF (0-2)
--- NOTE | 2021-01-16 19:32 | RAD ---
Exam: CT of abdomen and pelvis without contrast INDICATION: Flank pain TECHNIQUE: Sequential axial images through the abdomen and pelvis obtained without IV contrast. Sagit clifton and coronal reformatted images were reconstructed from the axial data and reviewed. Exposure: One or more of the following in the visualized dose reduction techniques were utilized for this examination: 1. Automated exposure control 2. Adjustment of the MA and/or KV according to patient size 3. Use of iterative of reconstructive technique Comparisons: None FINDINGS: Heart is mildly enlarged. No pericardial effusion. Visualized lung bases are clear. No pleural effusi on. Evaluation of solid organs is limited secondary to noncontrast technique. Liver, spleen, pancreas and adrenals are unremarkable. Gallbladder is decompressed not well evaluated . No perinephric hydronephrosis. No renal or ureteral calculi are identified. Question subtle right per inephric fat stranding. Bladder is decompressed not well evaluated. Prostate is not enlarged. Large and small bowel are unremarkable. Appendix is nonidentified. No free intra-abdominal air or flu id. No obstruction. Abdominal aorta has a normal course and caliber. No enlarged intra-abdominal lymph nodes are identified. No suspicious osseous lesions or acute fractures. IMPRESSION: 1. No renal or ureteral calculi. No evidence for obstructive uropathy. 2. Question subtle right perinephric fat stranding. Correlate with urinalysis for infection. Electronically signed by: Isabela Ward MD (01/16/2021 7:30 PM) [facility]
[2021-01-16] MEDS ORDERED: TRAM-48 PO (21:35)
[2021-01-16 21:46] VITALS: BP 127/72
== END 2021-01-16 22:05 | disposition home or self-care (01) ==
LOC: ER 18:04
DX: K85.90 Acute pancreatitis without necrosis or infection, unspecified (principal); N28.9 Disorder of kidney and ureter, unspecified; E78.00 Pure hypercholesterolemia, unspecified; I10 Essential (primary) hypertension; F17.200 Nicotine dependence, unspecified, uncomplicated
CPT/HCPCS: 36415; 74176; 80053; 81001; 83690; 85025; 96361; 96374; 96375; 99285; J1885; J2405; J7030